=== PATIENT | female | born 1935 | race African-American/Black ===

== ENCOUNTER 2019-10-20 18:28 | Inpatient (IN) | payer OTHER, BC ==
[2019-10-20 19:03] VITALS: BMI 29.1
--- NOTE | 2019-10-20 19:23 | PDOC ---
Attending Attestation - Resident Resident Name: Brad Arevalo - ED Attending Attestation I have performed the following: I have examined & evaluated the patient, The case was reviewed & discussed with the resident, I agree w/resident's findings & plan - HPI HPI: 10/20/19 20:33 Pt comes with seizure activity at home today, and urinary incontinence. She lives with one of her daughters. She comes to the hospital with another one of her daughters who did not witness the seizure. Pt has a remote hx of seizures. She is non compliant with anti-seizure meds for years. She is not aware of what med she was on. Pt is alert and awake and responding normally. Her daughter states that for the past month she has been rickie forgetful. Pt has a great appetite. Yesterday she was vomiting a bit yesterday and today she ate soup. Pt is afebrile and has no complaints. - Physicial Exam PE: 10/20/19 20:37 Afebrile VSS Pt is able to move all extremities and she has no difficulty following commands. Motor and strength intact Pt has HEENT normal Heart [id number] Lungs CTA B Abd soft NT ND (old hysterectomy scar) no flank pain No pitting edema of legs. no rashes - Medical Decision Making 10/20/19 20:33 CBC normal PT/INR normal 10/20/19 20:56 Lactic acid is normal 10/20/19 22:06 Pt has elevated glucose; all labs are normal. Once head CT is back, sh will be admitted. 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 Left frontotemporal encephalomalacia and gliosis compatible with an old infarct No intra-or extra-axial hemorrhage or collection. No midline shift Mild to moderate cortical atrophy Ex vacuo dilatation of the anterior horn and body of the left lateral ventricle secondary to encephalomalacia. The ventricles are otherwise not enlarged Areas of low attenuation in the periventricular white matter are compatible with chronic microvascular ischemic changes. The visualized paranasal sinuses and mastoid air cells are clear 10/20/19 23:13 Pt will be admitted to the hospitalists
[2019-10-20] MEDS ORDERED: levETIRAcetam 500 MG/5 ML INJECTION VIAL IVPB ONE ×2 (19:43→20:39)
--- NOTE | 2019-10-20 19:52 | PDOC ---
History of Present Illness - General Chief Complaint: Seizure Stated Complaint: FLU LIKE SYMPTOMS Time Seen by Provider: 10/20/19 19:23 History Source: Patient Exam Limitations: No Limitations - History of Present Illness Initial Comments: 10/20/19 19:52 84 y/o F hx of CVA (residual deficit of dysarthria), HTN, hypothyroidism, borderline DM, blood clots (Xeralto) and seizures presents to the ED after seizure. Daughter at the bedside witnessed episode at 6 pm described as eyes rolling back while pt was seated (no LOC and did not hit her head), whole body shaking followed by 1 episode of NB/NB vomiting and urinated on herself without tongue bitting. Pt appeared confused for approx 5 min and returned to baseline mentation (AOX2) without complaints. Denies SOB, CP (pt mentioned to family on transport to ED that she had CP that resolved), back pain, abdominal pain, F/C, recent illness, sick contacts, recent travel, calf tenderness, lower ext swelling. Of note, daughter states pt has not taken seizure medication in years, was taken off medication by PCP Villa Myers. Does not know the name of the Neurologist she use to see. Past History - Past Medical History Allergies/Adverse Reactions: Allergies Allergy/AdvReac Type Severity Reaction Status Date / Time No Known Allergies Allergy Verified 10/25/18 23:37 CVA: Yes COPD: No HTN: Yes Thyroid Disease: Yes (hypo) - Psycho Social/Smoking Cessation Hx Smoking History: Never smoked Have you smoked in the past 12 months: No Information on smoking cessation initiated: No Hx Alcohol Use: No Drug/Substance Use Hx: No Review of Systems - Review of Systems Constitutional: No: Chills, Fever, Weakness HEENTM: No: Blurred Vision, Double Vision Respiratory: No: Shortness of Breath Cardiac (ROS): No: Chest Pain (resolved), Edema, Palpitations, Syncope ABD/GI: Yes: Vomiting. No: Constipated, Diarrhea, Nausea : No: Burning, Dysuria, Frequency, Flank Pain Musculoskeletal: No: Back Pain Neurological: Yes: Seizure. No: Numbness, Paresthesia, Weakness, Dizziness *Physical Exam - Vital Signs Last Vital Signs Temp Pulse Resp BP Pulse Ox 98.3 F 88 20 137/75 95 10/20/19 19:00 10/20/19 19:00 10/20/19 19:00 10/20/19 19:00 10/20/19 19:00 - Physical Exam General Appearance: Yes: Nourished, Appropriately Dressed. No: Apparent Distress HEENT: positive: EOMI, AIRAM, Normal Voice, Hearing Grossly Normal. negative: Pharyngeal Erythema, Tonsillar Exudate, Nasal Congestion Neck: positive: Supple. negative: Carotid bruit Respiratory/Chest: positive: Lungs Clear, Normal Breath Sounds. negative: Respiratory Distress, Accessory Muscle Use Cardiovascular: positive: Regular Rhythm, Regular Rate, S1, S2. negative: Edema , JVD, Murmur Vascular Pulses: Dorsalis-Pedis (R): 4+, Doralis-Pedis (L): 4+ Gastrointestinal/Abdominal: positive: Flat, Soft. 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 negative: Fully Oriented (baseline AOX2), Facial Droop, Numbness, Sensory Deficit, Confused, Disoriented ED Treatment Course - LABORATORY CBC & Chemistry Diagram: 10/20/19 19:47 10/20/19 19:47 - RADIOLOGY Radiology Studies Ordered: Category Date Time Status CHEST X-RAY PORTABLE* [RAD] Stat Radiology 10/20/19 19:42 Ordered Medical Decision Making - Medical Decision Making 10/20/19 19:59 84 y/o F hx of CVA (residual deficit of dysarthria), HTN, hypothyroidism, borderline DM, blood clots (Xeralto) and seizures presents to the ED after seizure. Daughter at the bedside witnessed episode at 6 pm described as eyes rolling back while pt was seated (no LOC and did not hit her head), whole body shaking followed by 1 episode of NB/NB vomiting and urinated on herself without tongue bitting. Pt appeared confused for approx 5 min and returned to baseline mentation (AOX2) without complaints. Denies SOB, CP, back pain, abdominal pain, F/C, recent illness, sick contacts, recent travel, calf tenderness, lower ext swelling. Of note, daughter states pt has not taken seizure medication in years, was taken off medication by PCP Villa Myers. Does not know the name of the Neurologist she use to see. Vitals WNL Pt well appearing, baseline mentation AOX2 without any complaints Will do labs including cardiac profile, lactic acid, tsh Head CT EKG, CXR UA/UC Will treat with 1G IV keppra and reassess 10/20/19 20:14 EKG NSR without acute signs of ischemia. Vent rate 85 bpm, QTc 442 Brother at the bedside adds to hx, states pt use to see Dr. Mckeon (Neuro) was on Dilantin 5 years ago, stopped taking medication on her own and did not have a seizure since. Dr. Mckeon agreed to have her not take medication and no longer follows pt. 10/20/19 23:[address] Myers agrees to admission tele stroke for CVA vs Seizure Discharge - Discharge Information Problems reviewed: Yes Clinical Impression/Diagnosis: Seizure, CVA (cerebral vascular accident) Condition: Stable - Admission Yes - Follow up/Referral Referrals: Villa Myers MD [Primary Care Provider] - - Patient Discharge Instructions - Post Discharge Activity
[2019-10-20 20:12] LABS: INR 1.13 (0.83-1.09); PROTHROMBIN TIME (PATIENT) 13.3 SEC (9.7-13.0)
[2019-10-20 20:15] LABS: ACTIVATED PTT 27.8 SECONDS (25.2-36.5)
[2019-10-20 20:29] LABS: BASO % 0.8 % (0-2.0); EOS % 0.3 % (0-4.5); HEMATOCRIT 39.4 % (32.4-45.2); HEMOGLOBIN 13.4 GM/dL (10.7-15.3); LYMPH % 9.3 % (8-40); MCH 32.1 pg (25.7-33.7); MEAN CELL VOLUME 94.5 fl (80-96); MEAN PLT VOLUME 8.8 fl (7.5-11.1); MONO % 4.2 % (3.8-10.2); NEUT % 85.4 % (42.8-82.8); PLATELET COUNT 176 K/MM3 (134-434); RBC 4.17 M/mm3 (3.60-5.2); RDW 13.2 % (11.6-15.6); WHITE BLOOD COUNT 6.5 K/mm3 (4.0-10.0)
[2019-10-20 21:07] LABS: ALBUMIN 3.2 g/dl (3.4-5.0); ALK PHOS 138 U/L (45-117); ANION GAP 5 MMOL/L (8-16); CALCIUM 8.5 mg/dL (8.5-10.1); CHLORIDE 101 mmol/L (98-107); CO2 29 mmol/L (21-32); CREATININE 0.9 mg/dL (0.55-1.3); GLUCOSE,RANDOM 241 mg/dL (74-106); POTASSIUM 4.3 mmol/L (3.5-5.1); SGOT/AST 37 U/L (15-37); SGPT/ALT 16 U/L (13-61); SODIUM 136 mmol/L (136-145); TOT PROT 7.7 g/dl (6.4-8.2)
[2019-10-21 02:32] LABS: EPI CELLS 3.2 /HPF (0-5/HPF); HYALINE CASTS 9 /lpf (0-8); URINE APPEARANCE CLOUDY; URINE BACTERIA 8695.8 /hpf (NEGATIVE); URINE BILIRUBIN NEGATIVE (NEGATIVE); URINE COLOR YELLOW; URINE GLUCOSE (UA) NEGATIVE (NEGATIVE); URINE KETONE TRACE (NEGATIVE); URINE LEUK ESTERASE NEGATIVE (NEGATIVE); URINE NITRITE POSITIVE (NEGATIVE); URINE PROTEIN 1+ (NEGATIVE); URINE RBC 3 /hpf (0-4); URINE WBC 7 /hpf (0-5)
[2019-10-21] MEDS: metFORMIN HCL 500 MG TABLET (FP) PO SCH ×2 (08:51→16:56)
[2019-10-21] MEDS ORDERED: NITROFURANTOIN MACROCRYSTAL 50 MG CAPSULE (FP) PO SCH (10:00)
[2019-10-21] MEDS: metoPROLOL SUCCINATE 25 MG TAB.SR.24H (FP) PO SCH (10:42)
[2019-10-21] MEDS: ASPIRIN COATED 81 MG TABLET.EC PO SCH (10:42)
[2019-10-21] MEDS: levETIRAcetam 500 MG TABLET (FP) PO SCH ×2 (10:42→21:10)
--- NOTE | 2019-10-21 11:35 | HP ---
Admitting History and Physical - Admission Chief Complaint: pt had seizure at home lasted ? 30 sec??family not very informative w respect to meds. pt never complaint w neds despite fam involvment History Source: Family Member Limitations to Obtaining History: Other (diff formulating words sec to past insult to b rain) - Past Medical History Cardiovascular: Yes: HTN ...: No - Past Surgical History Additional Past Surgical History: brain aneurysm cliped - Smoking History Smoking history: Never smoked Have you smoked in the past 12 months: No - Alcohol/Substance Use Hx Alcohol Use: No History of Substance Use: reports: None - Social History Usual Living Arrangement: Yes: With Child Home Medications - Allergies Allergies/Adverse Reactions: Allergies Allergy/AdvReac Type Severity Reaction Status Date / Time No Known Allergies Allergy Verified 10/25/18 23:37 Family Medical History Family History: Unremarkable Review of Systems - Review of Systems Constitutional: reports: Other (rt leg pasin) Eyes: reports: No Symptoms HENT: reports: No Symptoms Neck: reports: No Symptoms Cardiovascular: reports: No Symptoms Respiratory: reports: No Symptoms Gastrointestinal: reports: No Symptoms Genitourinary: reports: No Symptoms Breasts: reports: No Symptoms Reported Musculoskeletal: reports: Back Pain Integumentary: reports: No Symptoms Neurological: reports: Confusion Endocrine: reports: No Symptoms Hematology/Lymphatic: reports: No Symptoms Psychiatric: reports: No Symptoms Physical Examination Vital Signs: Vital Signs Temperature 98.9 F 10/21/19 04:56 Pulse Rate 67 10/21/19 10:40 Respiratory Rate 20 10/21/19 10:40 Blood Pressure 137/69 10/21/19 10:40 O2 Sat by Pulse Oximetry (%) 97 10/21/19 10:40 Constitutional: Yes: No Distress Eyes: Yes: WNL HENT: Yes: WNL Neck: Yes: WNL Cardiovascular: Yes: WNL, Other Gastrointestinal: Yes: WNL ...Rectal Exam: Yes: Deferred Renal/: Yes: WNL Breast(s): Yes: WNL Musculoskeletal: Yes: Back Pain, Muscle Weakness Extremities: Yes: WNL, Other (rt leg edematous pain scal 5) Edema: Yes Edema: RLE: 3+ Peripheral Pulses WNL: Yes Peripheral Pulses: Left Radial: 2+, Right Radial: 2+, Left Doralis Pedis: 2+, Right Dorsalis Pedis: 2+, Left Femoral: 2+, Right Femoral: 2+ Integumentary: Yes: WNL (slow formilating words?) ...Motor Strength: WNL (mild oms) Labs: CBC, BMP 10/20/19 19:47 10/20/19 19:47 Assessment/Plan rt leg duplex josué ekg past ? irregular heart ?? as per mattehw pulm consult neuro to see pt
--- NOTE | 2019-10-21 13:43 | CON.PULM ---
Consult Consult Specialty:: PULMONARY Referred by:: Dr Myers Reason for Consultation:: abnormal CXR - History of Present Illness Chief Complaint: altered mental status History of Present Illness: 84yo female with h/o HTN, DM, hypothyroidism, h/o blood clots on anticoagulation , h/o CVA, seizure disorder who was admitted s/p seizure episode. She ws not taking her medications at home. She denies shortness of breath but with nonproductive cough. No fevers, chills or sweats. She states she is a former smoker, not on any inhalers at home. - History Source History Provided By: Patient, Medical Record Limitations to Obtaining History: Clinical Condition - Past Medical History Cardio/Vascular: Yes: HTN ...: No - Alcohol/Substance Use Hx Alcohol Use: No History of Substance Use: reports: None - Smoking History Smoking history: Never smoked Have you smoked in the past 12 months: No Home Medications - Allergies Allergies/Adverse Reactions: Allergies Allergy/AdvReac Type Severity Reaction Status Date / Time No Known Allergies Allergy Verified 10/25/18 23:37 Review of Systems - Review of Systems Constitutional: reports: Weakness. denies: Chills, Fever Eyes: denies: Recent Change in Vision HENT: denies: Nasal Congestion, Throat Pain Neck: denies: Stiffness, Tenderness Cardiovascular: denies: Chest Pain, Shortness of Breath Respiratory: reports: Cough. denies: Hemoptysis, Wheezing Gastrointestinal: denies: Abdominal Pain, Nausea, Vomiting Genitourinary: denies: Dysuria, Hematuria Neurological: denies: Dizziness, Headache Endocrine: denies: Unexplained Weight Loss Physical Exam Vital Sings: Vital Signs Temperature 98.9 F 10/21/19 04:56 Pulse Rate 73 10/21/19 13:00 Respiratory Rate 18 10/21/19 13:00 Blood Pressure 151/69 10/21/19 13:00 O2 Sat by Pulse Oximetry (%) 98 10/21/19 13:00 Constitutional: Yes: Calm Eyes: Yes: Conjunctiva Clear, EOM Intact HENT: Yes: Atraumatic, Normocephalic Neck: Yes: Supple, Trachea Midline Cardiovascular: Yes: Regular Rate and Rhythm Respiratory: Yes: Diminished (decreased breath sounds at the bases) ...Clubbing: No Gastrointestinal: Yes: Normal Bowel Sounds, Soft. No: Tenderness Edema: No Neurological: Yes: Alert Labs: CBC, BMP 10/20/19 19:47 10/20/19 19:47 Imaging - Results Chest X-ray: Report Reviewed, Image Reviewed (LLL infiltrate) Assessment/Plan Seizure Seizure Disorder Pneumonia HTN Dm Hypothyroidism h/o VTE h/o CVA - would start antibiotics - f/u cultures - send urinary antigens - O2 to keep Spo2>90% - antiepileptics - aspiration precautions - DVT prophylaxis Thank you for this consult Nitin Paiz MD
--- NOTE | 2019-10-21 14:08 | EKG ---
Test Reason : Blood Pressure : / mmHG Vent. Rate : 085 BPM Atrial Rate : 085 BPM P-R Int : 160 ms QRS Dur : 082 ms QT Int : 372 ms P-R-T Axes : 064 -23 055 degrees QTc Int : 442 ms NORMAL SINUS RHYTHM LEFT ATRIAL ENLARGEMENT LEFT VENTRICULAR HYPERTROPHY INFERIOR INFARCT , AGE UNDETERMINED ABNORMAL ECG NO PREVIOUS ECGS AVAILABLE Confirmed by MD ZUNIGA MOYSES ([id number]) on 10/21/2019 2:08:16 PM Referred By: Confirmed By:RAI ZUNIGA MD
[2019-10-21] MEDS ORDERED: DEXTROSE 5%-WATER - 50 ML IVPB ONE (15:40)
[2019-10-21] MEDS ORDERED: cefTRIAXone SODIUM 1 GM VIAL ONE (15:40)
[2019-10-21] MEDS: CEFTRIAXONE 1 GM in DEXTROSE 5%-WATER - 50 ML IVPB SCH (15:43)
[2019-10-21] MEDS ORDERED: AZITHROMYCIN IVPB 500 MG in DEXTROSE 5%-WATER - 250 ML IVPB SCH (22:30)
[2019-10-21] MEDS ORDERED: CEFTRIAXONE 1,000 MG in DEXTROSE 5%-WATER - 50 ML IVPB SCH (22:30)
[2019-10-21] MEDS ORDERED: AZITHROMYCIN IVPB 500 MG/250 ML BAG IVPB ONE (23:30)
[2019-10-22] MEDS: metFORMIN HCL 500 MG TABLET (FP) PO SCH ×2 (06:06→17:11)
[2019-10-22 07:23] LABS: BASO % 0.4 % (0-2.0); EOS % 2.1 % (0-4.5); HEMATOCRIT 36.6 % (32.4-45.2); HEMOGLOBIN 12.2 GM/dL (10.7-15.3); LYMPH % 29.5 % (8-40); MCH 31.7 pg (25.7-33.7); MCHC 33.4 g/dl (32.0-36.0); MEAN CELL VOLUME 95.1 fl (80-96); MONO % 11.1 % (3.8-10.2); NEUT % 56.9 % (42.8-82.8); PLATELET COUNT 163 K/MM3 (134-434); RBC 3.84 M/mm3 (3.60-5.2); RDW 13.1 % (11.6-15.6); WHITE BLOOD COUNT 5.5 K/mm3 (4.0-10.0)
[2019-10-22 07:58] LABS: BILIRUBIN,TOTAL 0.8 mg/dL (0.2-1); BLOOD UREA NITROGEN 21.3 mg/dL (7-18); CALCIUM 8.7 mg/dL (8.5-10.1); POTASSIUM 3.2 mmol/L (3.5-5.1); TOT PROT 6.8 g/dl (6.4-8.2)
[2019-10-22] MEDS ORDERED: cefTRIAXone SODIUM 1 GM VIAL ONE (09:08)
[2019-10-22] MEDS ORDERED: DEXTROSE 5%-WATER - 50 ML IVPB ONE (09:09)
[2019-10-22] MEDS: CEFTRIAXONE 1 GM in DEXTROSE 5%-WATER - 50 ML IVPB SCH (09:24)
[2019-10-22] MEDS: metoPROLOL SUCCINATE 25 MG TAB.SR.24H (FP) PO SCH (09:24)
[2019-10-22] MEDS: levETIRAcetam 500 MG TABLET (FP) PO SCH ×2 (09:24→22:04)
[2019-10-22] MEDS: ASPIRIN COATED 81 MG TABLET.EC PO SCH (09:24)
[2019-10-22] MEDS ORDERED: POTASSIUM CHLORIDE TABS 20 MEQ TABLET.ER (FP) PO ONE (11:00)
[2019-10-22] MEDS: AZITHROMYCIN IVPB 250 MG in DEXTROSE 5%-WATER - 250 ML IVPB SCH (11:50)
--- NOTE | 2019-10-22 11:55 | PN ---
Progress Note (short form) - Note Progress Note: Resting in NAD on RA. Reports some dry cough. No acute events overnight. Intake & Output 10/19/19 10/20/19 10/21/19 10/22/19 23:59 23:59 23:59 23:59 Intake Total 660 Balance 660 Weight 185 lb 13.683 oz 185 lb 13.683 oz Last Vital Signs Temp Pulse Resp BP Pulse Ox 98.1 F 68 18 117/55 L 74 L 10/22/19 05:58 10/22/19 05:58 10/22/19 05:58 10/22/19 05:58 10/21/19 21:00 Active Medications Aspirin (Ecotrin -) 81 mg PO DAILY [facility] Last Admin: 10/22/19 09:24 Dose: 81 mg Ceftriaxone Sodium 1 gm/ (Dextrose) 50 mls @ 100 mls/hr IVPB DAILY [facility]; Protocol Last Admin: 10/22/19 09:24 Dose: 100 mls/hr Azithromycin 250 mg/ Dextrose 250 mls @ 250 mls/hr IVPB DAILY [facility] Stop: 10/25/19 10:59 Levetiracetam (Keppra -) 500 mg PO BID [facility] Last Admin: 10/22/19 09:24 Dose: 500 mg Metformin HCl (Glucophage -) 1,000 mg PO BID@0700,1630 [facility] Last Admin: 10/22/19 06:06 Dose: 1,000 mg Metoprolol Succinate (Toprol Xl -) 25 mg PO DAILY [facility] Last Admin: 10/22/19 09:24 Dose: 25 mg Constitutional: Yes: NAD on RA Eyes: Yes: Conjunctiva Clear, EOM Intact HENT: Yes: Atraumatic, Normocephalic Neck: Yes: Supple, Trachea Midline Cardiovascular: Yes: Regular Rate and Rhythm Respiratory: Yes: Diminished (decreased breath sounds at the bases) ...Clubbing: No Gastrointestinal: Yes: Normal Bowel Sounds, Soft. No: Tenderness Edema: No Neurological: Yes: Alert Labs: Laboratory Results - last 24 hr 10/21/19 10/21/19 10/22/19 16:55 20:06 06:00 WBC RBC Hgb Hct MCV MCH MCHC RDW Plt Count MPV Absolute Neuts (auto) Neutrophils % Lymphocytes % Monocytes % Eosinophils % Basophils % Nucleated RBC % Sodium 138 Potassium 3.2 L Chloride 103 Carbon Dioxide 27 Anion Gap 7 L BUN 21.3 H Creatinine 1.0 Est GFR (CKD-EPI)AfAm 60.76 Est GFR (CKD-EPI)NonAf 52.42 POC Glucometer 163 217 Random Glucose 158 H Calcium 8.7 Total Bilirubin 0.8 AST 17 ALT 11 L Alkaline Phosphatase 113 Total Protein 6.8 Albumin 3.0 L 10/22/19 10/22/19 06:00 06:05 WBC 5.5 RBC 3.84 Hgb 12.2 Hct 36.6 MCV 95.1 MCH 31.7 MCHC 33.4 RDW 13.1 Plt Count 163 MPV 9.0 Absolute Neuts (auto) 3.1 Neutrophils % 56.9 D Lymphocytes % 29.5 D Monocytes % 11.1 H D Eosinophils % 2.1 D Basophils % 0.4 Nucleated RBC % 0 Sodium Potassium Chloride Carbon Dioxide Anion Gap BUN Creatinine Est GFR (CKD-EPI)AfAm Est GFR (CKD-EPI)NonAf POC Glucometer 155 Random Glucose Calcium Total Bilirubin AST ALT Alkaline Phosphatase Total Protein Albumin Assessment/Plan LLL PNA Seizure Seizure Disorder HTN Dm Hypothyroidism h/o VTE h/o CVA - ABX - send urinary antigens - O2 to keep Spo2>90% - antiepileptics - aspiration precautions - DVT prophylaxis Dr Ramsey
--- NOTE | 2019-10-22 17:21 | PN ---
Progress Note, Physician History of Present Illness: confortable seuizure free tolerating diet bm ok diff formulating words agreed to take po kcl finally neuron will see pt today - Current Medication List Current Medications: Active Medications Aspirin (Ecotrin -) 81 mg PO DAILY [facility] Last Admin: 10/22/19 09:24 Dose: 81 mg Ceftriaxone Sodium 1 gm/ (Dextrose) 50 mls @ 100 mls/hr IVPB DAILY [facility]; Protocol Last Admin: 10/22/19 09:24 Dose: 100 mls/hr Azithromycin 250 mg/ Dextrose 250 mls @ 250 mls/hr IVPB DAILY [facility] Stop: 10/25/19 10:59 Last Admin: 10/22/19 11:50 Dose: 250 mls/hr Levetiracetam (Keppra -) 500 mg PO BID [facility] Last Admin: 10/22/19 09:24 Dose: 500 mg Metformin HCl (Glucophage -) 1,000 mg PO BID@0700,1630 [facility] Last Admin: 10/22/19 17:11 Dose: 1,000 mg Metoprolol Succinate (Toprol Xl -) 25 mg PO DAILY [facility] Last Admin: 10/22/19 09:24 Dose: 25 mg - Objective Vital Signs: Vital Signs Temperature 98.6 F 10/22/19 15:00 Pulse Rate 70 10/22/19 15:00 Respiratory Rate 18 10/22/19 15:00 Blood Pressure 142/67 10/22/19 15:00 O2 Sat by Pulse Oximetry (%) 94 L 10/22/19 09:00 Constitutional: Yes: No Distress Eyes: Yes: WNL HENT: Yes: WNL Neck: Yes: WNL Cardiovascular: Yes: WNL Respiratory: Yes: WNL Gastrointestinal: Yes: WNL ...Rectal Exam: Yes: Deferred Genitourinary: Yes: WNL Breast(s): Yes: WNL Musculoskeletal: Yes: WNL Extremities: Yes: WNL Edema: Yes Edema: RLE: 1+ Peripheral Pulses WNL: Yes Integumentary: Yes: WNL Neurological: Yes: Seizure ...Motor Strength: WNL Psychiatric: Yes: Other (mild oms) Labs: CBC, BMP 10/22/19 06:00 10/22/19 06:00 INR, PTT INR 1.13 (0.83-1.09) H 10/20/19 19:47 Assessment/Plan cont tx as is f/u neuro ? mri brain
--- NOTE | 2019-10-22 19:23 | CONSULT ---
Consult - text type - Consultation Consultation Note: NEUROLOGY CONSULTATION is greatly appreciated: Events reviewed and discussed with Dr. Villa Myers, This 84 yo RH woman lives with her son. PMH sig for HTN, Chol, Hypothyroidism and distant seizure disorder. Maintained on: Aspirin 81 mg; Metformin 1,000 mg PO BID; and Metoprolol Xl 25 m Seen by me > 10 years ago on chronic Dilantin therapy after being seizure free for 5 years at that time (and had already D/C'ed Dilantin on her own.) Admitted after possible unwitnessed seizure with urinary incontinence. Loaded with levetiracetam. Son notes recent memory decline. CT scan of head: S/P left craniotomy with aneurysmal clips near the left MCA trifurcation and right parasellar region with left frontal encephalomalacia and Ventricular dilatation (L>R) and diffuse, scattered microvascular changes. TSH=0.73 CODY: No evidence of external head trauma. No bruits. Cor reg. NEURO: Awake, alert. Fluent but hypophonic speech. [facility], September 2019. Recalls 0 of 3 objects at 3 mins + Glabella, snout CN II-XII: Mild right exotropia with full EOM's. Full torres. No facial. Gag OK Motor: Mild right drift and Sl.decreased NATALIE's. Decreased reflexes in legs. Toes downgoing Coord: No FTN dystaxia. Sensory: Normal IMP: 1. Moderate, B/L cerebral dysfuction (OMS, chronic features) sugesting Alzheimer's Disease 2. Mild left cerebral accentuation probably residual of MCA aneurysmal clipping and/or associated CVA (Vasospasm?) 3. Recurrent seizure vs. Syncope or fall SUGGEST: Check B12, RPR Mobilize Patient OO Bed to chair TID for meals and check orthostatic BP's at these times Telemetry or halter to r/o arrhythmia Agree with levetiracetam 500 mg PO BID PT for gait with walker Neuro f/u as out patient for EEG and o follow OMS. If no bradycardia or arrythmia, begin Donepezil 5 mg PO q AM Thank you very much, Bruce Mckeon MD
[2019-10-23] MEDS: metFORMIN HCL 500 MG TABLET (FP) PO SCH ×2 (06:27→16:54)
[2019-10-23 06:54] LABS: BLOOD UREA NITROGEN 21.2 mg/dL (7-18); CALCIUM 8.8 mg/dL (8.5-10.1); POTASSIUM 3.7 mmol/L (3.5-5.1)
[2019-10-23 07:02] LABS: BASO % 0.7 % (0-2.0); EOS % 5.7 % (0-4.5); HEMATOCRIT 37.2 % (32.4-45.2); HEMOGLOBIN 12.4 GM/dL (10.7-15.3); LYMPH % 29.4 % (8-40); MCH 32.2 pg (25.7-33.7); MCHC 33.4 g/dl (32.0-36.0); MEAN CELL VOLUME 96.4 fl (80-96); MEAN PLT VOLUME 9.2 fl (7.5-11.1); MONO % 9.2 % (3.8-10.2); PLATELET COUNT 157 K/MM3 (134-434); RBC 3.86 M/mm3 (3.60-5.2); RDW 13.6 % (11.6-15.6); WHITE BLOOD COUNT 6.1 K/mm3 (4.0-10.0)
[2019-10-23] MEDS ORDERED: DEXTROSE 5%-WATER - 50 ML IVPB ONE (08:53)
[2019-10-23] MEDS ORDERED: cefTRIAXone SODIUM 1 GM VIAL ONE (08:53)
[2019-10-23] MEDS: ASPIRIN COATED 81 MG TABLET.EC PO SCH (09:41)
[2019-10-23] MEDS: metoPROLOL SUCCINATE 25 MG TAB.SR.24H (FP) PO SCH (09:41)
[2019-10-23] MEDS: CEFTRIAXONE 1 GM in DEXTROSE 5%-WATER - 50 ML IVPB SCH (09:41)
[2019-10-23] MEDS: levETIRAcetam 500 MG TABLET (FP) PO SCH ×2 (09:41→21:09)
[2019-10-23] MEDS: AZITHROMYCIN IVPB 250 MG in DEXTROSE 5%-WATER - 250 ML IVPB SCH (10:31)
--- NOTE | 2019-10-23 11:04 | PN ---
Progress Note, Physician History of Present Illness: could not tolerate donazopil n/v compfotable vss bm ok tolerating diet - Current Medication List Current Medications: Active Medications Aspirin (Ecotrin -) 81 mg PO DAILY [facility] Last Admin: 10/23/19 09:41 Dose: 81 mg Ceftriaxone Sodium 1 gm/ (Dextrose) 50 mls @ 100 mls/hr IVPB DAILY [facility]; Protocol Last Admin: 10/23/19 09:41 Dose: 100 mls/hr Azithromycin 250 mg/ Dextrose 250 mls @ 250 mls/hr IVPB DAILY [facility] Stop: 10/25/19 10:59 Last Admin: 10/23/19 10:31 Dose: 250 mls/hr Levetiracetam (Keppra -) 500 mg PO BID [facility] Last Admin: 10/23/19 09:41 Dose: 500 mg Metformin HCl (Glucophage -) 1,000 mg PO BID@0700,1630 [facility] Last Admin: 10/23/19 06:27 Dose: 1,000 mg Metoprolol Succinate (Toprol Xl -) 25 mg PO DAILY [facility] Last Admin: 10/23/19 09:41 Dose: 25 mg - Objective Vital Signs: Vital Signs Temperature 97.8 F 10/23/19 09:49 Pulse Rate 71 10/23/19 09:49 Respiratory Rate 18 10/23/19 09:49 Blood Pressure 142/70 10/23/19 09:49 O2 Sat by Pulse Oximetry (%) 95 10/23/19 08:38 Constitutional: Yes: No Distress Eyes: Yes: WNL HENT: Yes: WNL Neck: Yes: WNL Cardiovascular: Yes: WNL Respiratory: Yes: WNL Gastrointestinal: Yes: WNL ...Rectal Exam: Yes: Deferred Genitourinary: Yes: WNL Breast(s): Yes: WNL Musculoskeletal: Yes: Back Pain, Joint Stiffness Extremities: Yes: WNL Edema: Yes Edema: RLE: 1+ Peripheral Pulses WNL: Yes Integumentary: Yes: WNL Neurological: Yes: WNL, Unresponsive Labs: CBC, BMP 10/23/19 05:26 10/23/19 05:26 INR, PTT INR 1.13 (0.83-1.09) H 10/20/19 19:47 Assessment/Plan p/t eval d/c ? sprain nh in ? am chk labs in am coid not tolerate donozapil n/v oob
--- NOTE | 2019-10-23 13:38 | PN ---
Progress Note (short form) - Note Progress Note: Resting in NAD on RA. Reports some dry cough. No acute events overnight. Intake & Output 10/20/19 10/21/19 10/22/19 10/23/19 23:59 23:59 23:59 23:59 Intake Total 660 830 370 Balance 660 830 370 Weight 185 lb 13.683 oz 185 lb 13.683 oz Last Vital Signs Temp Pulse Resp BP Pulse Ox 97.8 F 71 18 142/70 95 10/23/19 09:49 10/23/19 09:49 10/23/19 09:49 10/23/19 09:49 10/23/19 08:38 Active Medications Aspirin (Ecotrin -) 81 mg PO DAILY [facility] Last Admin: 10/23/19 09:41 Dose: 81 mg Ceftriaxone Sodium 1 gm/ (Dextrose) 50 mls @ 100 mls/hr IVPB DAILY [facility]; Protocol Last Admin: 10/23/19 09:41 Dose: 100 mls/hr Azithromycin 250 mg/ Dextrose 250 mls @ 250 mls/hr IVPB DAILY [facility] Stop: 10/25/19 10:59 Last Admin: 10/23/19 10:31 Dose: 250 mls/hr Levetiracetam (Keppra -) 500 mg PO BID [facility] Last Admin: 10/23/19 09:41 Dose: 500 mg Metformin HCl (Glucophage -) 1,000 mg PO BID@0700,1630 [facility] Last Admin: 10/23/19 06:27 Dose: 1,000 mg Metoprolol Succinate (Toprol Xl -) 25 mg PO DAILY [facility] Last Admin: 10/23/19 09:41 Dose: 25 mg Sitagliptin Phosphate (Januvia -) 25 mg PO DAILY@0700 [facility] Constitutional: Yes: NAD on RA Eyes: Yes: Conjunctiva Clear, EOM Intact HENT: Yes: Atraumatic, Normocephalic Neck: Yes: Supple, Trachea Midline Cardiovascular: Yes: Regular Rate and Rhythm Respiratory: Yes: Diminished (decreased breath sounds at the bases) ...Clubbing: No Gastrointestinal: Yes: Normal Bowel Sounds, Soft. No: Tenderness Edema: No Neurological: Yes: Alert Labs: Laboratory Results - last 24 hr 10/22/19 10/22/19 10/23/19 17:11 22:03 05:26 WBC 6.1 RBC 3.86 Hgb 12.4 Hct 37.2 MCV 96.4 H MCH 32.2 MCHC 33.4 RDW 13.6 Plt Count 157 MPV 9.2 Absolute Neuts (auto) 3.3 Neutrophils % 55.0 Lymphocytes % 29.4 Monocytes % 9.2 Eosinophils % 5.7 H D Basophils % 0.7 Nucleated RBC % 0 Sodium Potassium Chloride Carbon Dioxide Anion Gap BUN Creatinine Est GFR (CKD-EPI)AfAm Est GFR (CKD-EPI)NonAf POC Glucometer 185 246 Random Glucose Calcium 10/23/19 10/23/19 10/23/19 05:26 06:26 12:26 WBC RBC Hgb Hct MCV MCH MCHC RDW Plt Count MPV Absolute Neuts (auto) Neutrophils % Lymphocytes % Monocytes % Eosinophils % Basophils % Nucleated RBC % Sodium 140 Potassium 3.7 Chloride 107 Carbon Dioxide 27 Anion Gap 6 L BUN 21.2 H Creatinine 1.0 Est GFR (CKD-EPI)AfAm 60.76 Est GFR (CKD-EPI)NonAf 52.42 POC Glucometer 240 306 Random Glucose 223 H Calcium 8.8 Assessment/Plan LLL PNA Seizure Seizure Disorder HTN Dm Hypothyroidism h/o VTE h/o CVA - ABX - O2 to keep Spo2>90% - antiepileptics - aspiration precautions - DVT prophylaxis Dr Ramsey
--- NOTE | 2019-10-23 14:11 | CON.ID ---
Consult Consult Specialty:: infectious diseases Referred by:: Reason for Consultation:: ams - History of Present Illness Chief Complaint: ams History of Present Illness: 84yo female with h/o HTN, DM, hypothyroidism, h/o blood clots on anticoagulation , h/o CVA, seizure disorder who was admitted s/p seizure episode. She ws not taking her medications at home. She denies shortness of breath but with nonproductive cough. No fevers, chills or sweats. She states she is a former smoker, not on any inhalers at home. 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: Yes: Dementia, Other (h/o cva) Cardio/Vascular: Yes: HTN Pulmonary: Yes: Other (h/o pe) ...: No Musculoskeletal: Yes: Chronic low back pain, Osteoarthritis Endocrine: Yes: Diabetes Mellitus (cateract sx), Hypothyroidism - Past Surgical History Past Surgical History: Yes: Hysterectomy - Alcohol/Substance Use Hx Alcohol Use: No History of Substance Use: reports: None - Smoking History Smoking history: Never smoked Have you smoked in the past 12 months: No Aproximately how many cigarettes per day: 0 If you are a former smoker, when did you quit?: 10-20yrs - Social History ADL: Family Assistance History of Recent Travel: No Home Medications - Allergies Allergies/Adverse Reactions: Allergies Allergy/AdvReac Type Severity Reaction Status Date / Time No Known Drug Allergies Allergy Verified 04/03/18 18:44 - Home Medications Home Medications: Ambulatory Orders Aspirin Coated [Ecotrin -] 81 mg PO DAILY #0 tablet.ec 09/26/15 Glyburide [Micronase -] 2.5 mg PO DAILY@0700 #0 tablet 09/26/15 Levothyroxine [Synthroid -] 25 mcg PO DAILY@0700 #0 tablet 09/26/15 Rivaroxaban [Xarelto -] 20 mg PO DAILY #0 tablet 09/26/15 Valsartan [Diovan] 40 mg PO DAILY 04/08/16 Aspirin Coated [Ecotrin -] 81 mg PO DAILY tablet.ec 04/05/18 Furosemide [Lasix -] 40 mg PO DAILY tablet 04/05/18 Glyburide [Micronase -] 2.5 mg PO DAILY@0700 tablet 04/05/18 Levothyroxine [Synthroid -] 25 mcg PO DAILY@0700 tablet 04/05/18 Potassium Chloride [K-Dur -] 10 meq PO DAILY #90 tablet.er 04/05/18 Rivaroxaban [Xarelto -] 20 mg PO DAILY@1800 tablet 04/05/18 Valsartan [Diovan] 40 mg PO DAILY tablet 04/05/18 Review of Systems Unable to obtain ROS, reason: unable to obtain Physical Exam Vital Signs: Vital Signs Temperature 97.8 F 10/23/19 09:49 Pulse Rate 71 10/23/19 09:49 Respiratory Rate 18 10/23/19 09:49 Blood Pressure 142/70 10/23/19 09:49 O2 Sat by Pulse Oximetry (%) 95 10/23/19 08:38 Constitutional: Yes: No Distress, Calm Cardiovascular: Yes: Regular Rate and Rhythm Respiratory: Yes: Regular, CTA Bilaterally Gastrointestinal: Yes: Normal Bowel Sounds, Soft Musculoskeletal: Yes: WNL Extremities: Yes: WNL Neurological: Yes: Alert, Other (dementia) Labs: CBC, BMP 10/23/19 05:26 10/23/19 05:26 Imaging - Results Chest X-ray: Report Reviewed, Image Reviewed Cat Scan: Report Reviewed, Image Reviewed Assessment/Plan LLL PNA Seizure Seizure Disorder HTN Dm Hypothyroidism h/o VTE h/o CVA patient has been started on ceftriaxone and zithro will continue the abx asp precautions rest as per the team
[2019-10-24] MEDS: metFORMIN HCL 500 MG TABLET (FP) PO SCH ×2 (06:19→17:04)
[2019-10-24 07:52] LABS: BLOOD UREA NITROGEN 17.5 mg/dL (7-18); CALCIUM 8.6 mg/dL (8.5-10.1); CREATININE 0.8 mg/dL (0.55-1.3); POTASSIUM 4.1 mmol/L (3.5-5.1)
[2019-10-24 07:56] LABS: BASO % 0.6 % (0-2.0); EOS % 5.8 % (0-4.5); LYMPH % 36.8 % (8-40); MCH 31.9 pg (25.7-33.7); MCHC 33.4 g/dl (32.0-36.0); MEAN CELL VOLUME 95.4 fl (80-96); MEAN PLT VOLUME 8.9 fl (7.5-11.1); MONO % 9.9 % (3.8-10.2); NEUT % 46.9 % (42.8-82.8); PLATELET COUNT 160 K/MM3 (134-434); RBC 3.77 M/mm3 (3.60-5.2); RDW 13.2 % (11.6-15.6); WHITE BLOOD COUNT 5.9 K/mm3 (4.0-10.0)
[2019-10-24] MEDS ORDERED: cefTRIAXone SODIUM 1 GM VIAL ONE (10:09)
[2019-10-24] MEDS ORDERED: DEXTROSE 5%-WATER - 50 ML IVPB ONE (10:09)
[2019-10-24] MEDS ORDERED: PT OWN MED DRAWER 7, Y5N ONE (10:09)
[2019-10-24] MEDS: ASPIRIN COATED 81 MG TABLET.EC PO SCH (10:14)
[2019-10-24] MEDS: metoPROLOL SUCCINATE 25 MG TAB.SR.24H (FP) PO SCH (10:14)
[2019-10-24] MEDS: CEFTRIAXONE 1 GM in DEXTROSE 5%-WATER - 50 ML IVPB SCH (10:14)
[2019-10-24] MEDS: levETIRAcetam 500 MG TABLET (FP) PO SCH (10:14)
[2019-10-24] MEDS: AZITHROMYCIN IVPB 250 MG in DEXTROSE 5%-WATER - 250 ML IVPB SCH (11:00)
--- NOTE | 2019-10-24 11:40 | EKG ---
Test Reason : Blood Pressure : / mmHG Vent. Rate : 070 BPM Atrial Rate : 070 BPM P-R Int : 164 ms QRS Dur : 076 ms QT Int : 332 ms P-R-T Axes : 056 -14 096 degrees QTc Int : 358 ms NORMAL SINUS RHYTHM NONSPECIFIC T WAVE ABNORMALITY ABNORMAL ECG Confirmed by Landon Bartholomew MD ([id number]) on 10/24/2019 11:39:41 AM Referred By: Confirmed By:Landon Bartholomew MD
--- NOTE | 2019-10-24 12:43 | DS ---
Physical Examination Vital Signs: Vital Signs Temperature 97.5 F L 10/24/19 10:24 Pulse Rate 71 10/24/19 10:24 Respiratory Rate 20 10/24/19 10:24 Blood Pressure 120/62 10/24/19 10:24 O2 Sat by Pulse Oximetry (%) 95 10/23/19 21:00 Constitutional: Yes: Well Nourished Eyes: Yes: WNL HENT: Yes: WNL Neck: Yes: WNL Cardiovascular: Yes: WNL Respiratory: Yes: WNL Gastrointestinal: Yes: WNL ...Rectal Exam: Yes: Deferred Renal/: Yes: WNL Breast(s): Yes: WNL Musculoskeletal: Yes: WNL Extremities: Yes: WNL Edema: No Peripheral Pulses WNL: Yes Integumentary: Yes: WNL Neurological: Yes: WNL ...Motor Strength: WNL Psychiatric: Yes: WNL Labs: CBC, BMP 10/24/19 06:32 10/24/19 06:32 Discharge Summary Problems reviewed: Yes Reason For Visit: SEIZURE Current Active Problems CVA (cerebral vascular accident) (Acute) Seizure (Acute) Condition: Stable - Instructions Diet, Activity, Other Instructions: cont all meds as isp/t tx watsch for seizures Referrals: Villa Myers MD [Primary Care Provider] - Disposition: [facility]F-WAY FACILITY - Home Medications Comprehensive Discharge Medication List: Ambulatory Orders Aspirin Coated [Ecotrin -] 81 mg PO DAILY #0 tablet.ec 09/26/15 Glyburide [Micronase -] 2.5 mg PO DAILY@0700 #0 tablet 09/26/15 Levothyroxine [Synthroid -] 25 mcg PO DAILY@0700 #0 tablet 09/26/15 Rivaroxaban [Xarelto -] 20 mg PO DAILY #0 tablet 09/26/15 Valsartan [Diovan] 40 mg PO DAILY 04/08/16 Aspirin Coated [Ecotrin -] 81 mg PO DAILY tablet.ec 04/05/18 Furosemide [Lasix -] 40 mg PO DAILY tablet 04/05/18 Glyburide [Micronase -] 2.5 mg PO DAILY@0700 tablet 04/05/18 Levothyroxine [Synthroid -] 25 mcg PO DAILY@0700 tablet 04/05/18 Potassium Chloride [K-Dur -] 10 meq PO DAILY #90 tablet.er 07/18/18 Rivaroxaban [Xarelto -] 20 mg PO DAILY@1800 tablet 04/05/18 Valsartan [Diovan] 40 mg PO DAILY tablet 04/05/18
--- NOTE | 2019-10-24 14:05 | PN ---
Progress Note, Physician History of Present Illness: stable no new issues - Current Medication List Current Medications: Active Medications Aspirin (Ecotrin -) 81 mg PO DAILY [facility] Last Admin: 10/24/19 10:14 Dose: 81 mg Ceftriaxone Sodium 1 gm/ (Dextrose) 50 mls @ 100 mls/hr IVPB DAILY [facility]; Protocol Last Admin: 10/24/19 10:14 Dose: 100 mls/hr Azithromycin 250 mg/ Dextrose 250 mls @ 250 mls/hr IVPB DAILY [facility] Stop: 10/25/19 10:59 Last Admin: 10/24/19 11:00 Dose: 250 mls/hr Levetiracetam (Keppra -) 500 mg PO BID [facility] Last Admin: 10/24/19 10:14 Dose: 500 mg Metformin HCl (Glucophage -) 1,000 mg PO BID@0700,1630 [facility] Last Admin: 10/24/19 06:19 Dose: 1,000 mg Metoprolol Succinate (Toprol Xl -) 25 mg PO DAILY [facility] Last Admin: 10/24/19 10:14 Dose: 25 mg Sitagliptin Phosphate (Januvia -) 25 mg PO DAILY@0700 [facility] Last Admin: 10/24/19 06:19 Dose: 25 mg - Objective Vital Signs: Vital Signs Temperature 97.5 F L 10/24/19 10:24 Pulse Rate 71 10/24/19 10:24 Respiratory Rate 20 10/24/19 10:24 Blood Pressure 120/62 10/24/19 10:24 O2 Sat by Pulse Oximetry (%) 98 10/24/19 09:00 Constitutional: Yes: No Distress, Calm Cardiovascular: Yes: S1, S2 Respiratory: Yes: Regular, CTA Bilaterally Gastrointestinal: Yes: Normal Bowel Sounds, Soft Musculoskeletal: Yes: WNL Extremities: Yes: WNL Neurological: Yes: Alert Labs: CBC, BMP 10/24/19 06:32 10/24/19 06:32 INR, PTT INR 1.13 (0.83-1.09) H 10/20/19 19:47 Assessment/Plan LLL PNA Seizure Seizure Disorder HTN Dm Hypothyroidism h/o VTE h/o CVA plan can change to augmentin and zithro rest as per the team for 3 more days
--- NOTE | 2019-10-24 14:12 | PN ---
Progress Note (short form) - Note Progress Note: PULMONARY Still feeling weak. No fevers. Minimal cough. Vital Signs Period Temp Pulse Resp BP Sys/Oliver Pulse Ox Last 24 Hr 97.5 F-98.0 F 58-78 16-20 120-160/62-82 95-98 Gen: NAD at rest Heart: RRR Lung: decreased breath sounds at the bases Abd: soft, nontender Ext: no edema CBC, BMP 10/24/19 06:32 10/24/19 06:32 Active Medications Aspirin (Ecotrin -) 81 mg PO DAILY [facility] Last Admin: 10/24/19 10:14 Dose: 81 mg Ceftriaxone Sodium 1 gm/ (Dextrose) 50 mls @ 100 mls/hr IVPB DAILY [facility]; Protocol Last Admin: 10/24/19 10:14 Dose: 100 mls/hr Azithromycin 250 mg/ Dextrose 250 mls @ 250 mls/hr IVPB DAILY [facility] Stop: 10/25/19 10:59 Last Admin: 10/24/19 11:00 Dose: 250 mls/hr Levetiracetam (Keppra -) 500 mg PO BID [facility] Last Admin: 10/24/19 10:14 Dose: 500 mg Metformin HCl (Glucophage -) 1,000 mg PO BID@0700,1630 [facility] Last Admin: 10/24/19 06:19 Dose: 1,000 mg Metoprolol Succinate (Toprol Xl -) 25 mg PO DAILY [facility] Last Admin: 10/24/19 10:14 Dose: 25 mg Sitagliptin Phosphate (Januvia -) 25 mg PO DAILY@0700 [facility] Last Admin: 10/24/19 06:19 Dose: 25 mg A/P Seizure Seizure Disorder Pneumonia HTN Dm Hypothyroidism h/o VTE h/o CVA - complete antibiotics - O2 to keep Spo2>90% - antiepileptics - aspiration precautions - DVT prophylaxis
[2019-10-24 18:24] VITALS: BP 128/71; PULSE 68; TEMP 97.6
== END 2019-10-24 19:40 | DRG 100 ==
LOC: JER 18:28 → JERBED 22:56 → OBSVTOIN 10-21 00:57 → MERGE 10-21 00:57 → J4S 10-21 15:16
PROVIDERS: ADMIT Family Medicine; ATTEND Family Medicine
DX: G40.909 Epilepsy, unspecified, not intractable, without status epilepticus (principal); J18.9 Pneumonia, unspecified organism; I69.322 Dysarthria following cerebral infarction; G30.9 Alzheimer's disease, unspecified; I10 Essential (primary) hypertension; E03.9 Hypothyroidism, unspecified; E11.9 Type 2 diabetes mellitus without complications; Z79.84 Long term (current) use of oral hypoglycemic drugs
CPT/HCPCS: 36415; 70450-TC; 71045-TC-FY; 80048; 80053; 81003; 82550; 82553; 82962; 83605; 84443; 84484; 85025; 85610; 85730; 87177; 87209; 87324; 87449; 87899; 93005; 93010; 93970-TC; 97116-GP; 97161-GP; 99285-25; G0378

== ENCOUNTER 2020-12-28 16:04 | Emergency (ER) | payer OTHER, BC ==
[2020-12-28 16:30] VITALS: BP 149/88; PULSE 85; TEMP 98; BMI 28.1
[2020-12-28 18:34] LABS: BASO % 0.5 % (0-2.0); EOS % 1.2 % (0-4.5); HEMATOCRIT 40.5 % (32.4-45.2); HEMOGLOBIN 13.5 GM/dL (10.7-15.3); LYMPH % 12.5 % (8-40); MCH 32.5 pg (25.7-33.7); MCHC 33.3 g/dl (32.0-36.0); MEAN CELL VOLUME 97.4 fl (80-96); MEAN PLT VOLUME 9.2 fl (7.5-11.1); MONO % 4.8 % (3.8-10.2); PLATELET COUNT 216 K/MM3 (134-434); RBC 4.16 M/mm3 (3.60-5.2); RDW 13.8 % (11.6-15.6); WHITE BLOOD COUNT 8.1 K/mm3 (4.0-10.0)
[2020-12-28 18:57] LABS: CALCIUM 9.5 mg/dL (8.5-10.1)
[2020-12-28 18:59] LABS: ALBUMIN 3.8 g/dl (3.4-5.0); BLOOD UREA NITROGEN 21.4 mg/dL (7-18)
[2020-12-28 19:01] LABS: CREATININE 0.9 mg/dL (0.55-1.3)
[2020-12-28 19:02] LABS: BILIRUBIN,TOTAL 0.8 mg/dL (0.2-1); TOT PROT 8.4 g/dl (6.4-8.2)
[2020-12-28 20:22] LABS: EPI CELLS 2 /uL (0-25.1); HYALINE CASTS 6 /uL (0-3.1); PH,URINE 5.5 (5.0-8.0); URINE APPEARANCE CLOUDY; URINE BACTERIA >9,000 /uL (0-1359); URINE BILIRUBIN NEGATIVE (NEGATIVE); URINE COLOR YELLOW; URINE GLUCOSE (UA) NEGATIVE (NEGATIVE); URINE KETONE NEGATIVE (NEGATIVE); URINE LEUK ESTERASE 2+ (NEGATIVE); URINE NITRITE NEGATIVE (NEGATIVE); URINE PROTEIN NEGATIVE (NEGATIVE); URINE RBC 11 /uL (0-23.9); URINE WBC 285 /uL (0-25.8)
== END 2020-12-28 20:43 | disposition home or self-care (01) ==
LOC: JER 16:04
DX: R41.82 Altered mental status, unspecified (principal)
CPT/HCPCS: 36415; 70450-TC; 71045-TC-FY; 80053; 81003; 85025; 87086; 87186; 99285-25

== ENCOUNTER 2023-09-20 01:51 | Inpatient (IN) | payer BC, OTHER ==
[2023-09-20] MEDS ORDERED: levETIRAcetam 500 MG/5 ML INJECTION VIAL IVPB ONE ×2 (03:17→03:28)
[2023-09-20 03:38] LABS: BASO % 0.8 % (0-2.0); EOS % 1.6 % (0-4.5); HEMATOCRIT 41.2 % (32.4-45.2); HEMOGLOBIN 13.6 GM/dL (10.7-15.3); LYMPH % 15.9 % (8-40); MCH 31.1 pg (25.7-33.7); MEAN CELL VOLUME 94.5 fl (80-96); MEAN PLT VOLUME 9.1 fl (7.5-11.1); MONO % 6.9 % (3.8-10.2); NEUT % 74.8 % (42.8-82.8); PLATELET COUNT 210 10^3/uL (134-434); RBC 4.36 M/mm3 (3.60-5.2); RDW 13.4 % (11.6-15.6); WHITE BLOOD COUNT 7.8 K/mm3 (4.0-10.0)
[2023-09-20 03:46] LABS: INR 1.13 (0.83-1.09); PROTHROMBIN TIME (PATIENT) 13.1 SEC (9.7-13.0)
[2023-09-20 03:48] LABS: ACTIVATED PTT 25.5 SECONDS (25.2-36.5)
[2023-09-20 03:59] LABS: POTASSIUM 3.8 mmol/L (3.5-5.1)
[2023-09-20 04:02] LABS: ALBUMIN 3.3 g/dl (3.4-5.0); MAGNESIUM 1.4 mg/dL (1.8-2.4)
[2023-09-20 04:05] LABS: CREATININE 0.8 mg/dL (0.55-1.3)
[2023-09-20 04:06] LABS: BILIRUBIN,TOTAL 0.8 mg/dL (0.2-1)
[2023-09-20 04:24] LABS: EPI CELLS 1 /uL (0-25.1); HYALINE CASTS 0 /uL (0-3.1); PH,URINE 6.5 (5.0-8.0); URINE APPEARANCE CLEAR; URINE BACTERIA >9,000 /uL (0-1359); URINE BILIRUBIN NEGATIVE (NEGATIVE); URINE COLOR YELLOW; URINE GLUCOSE (UA) TRACE (NEGATIVE); URINE KETONE NEGATIVE (NEGATIVE); URINE LEUK ESTERASE 1+ (NEGATIVE); URINE NITRITE NEGATIVE (NEGATIVE); URINE PROTEIN NEGATIVE (NEGATIVE); URINE RBC 15 /uL (0-23.9); URINE UROBILINOGEN 0.2 mg/dL (0.2-1.0); URINE WBC 212 /uL (0-25.8)
[2023-09-20] MEDS ORDERED: CEFTRIAXONE 1 GM/50 ML BAG ONE (05:04)
[2023-09-20] MEDS ORDERED: MAGNESIUM 1GM/D5W - 1 GM/100 ML IVPB IVPB ONE (06:19)
[2023-09-20] MEDS ORDERED: CEFTRIAXONE 1 GM in DEXTROSE 5%-WATER - 50 ML IVPB SCH (10:00)
[2023-09-20] MEDS ORDERED: VALSARTAN 80 MG TABLET ONE (11:18)
[2023-09-20] MEDS: VALSARTAN 40 MG TABLET PO SCH (11:21)
[2023-09-20] MEDS: INSULIN (NOVOLOG) ASPART 100 UNITS/ML 10ML VIAL SQ SCH ×3 (12:49→21:42)
[2023-09-20] MEDS: RIVAROXABAN 20 MG TABLET PO SCH (18:29)
[2023-09-20] MEDS: levETIRAcetam 500 MG TABLET (FP) PO SCH (21:41)
[2023-09-21 00:22] VITALS: BMI 28.1
[2023-09-21] MEDS: INSULIN (NOVOLOG) ASPART 100 UNITS/ML 10ML VIAL SQ SCH ×4 (06:15→21:46)
[2023-09-21] MEDS: LEVOTHYROXINE NA 25 MCG TABLET (FP) PO SCH (06:15)
[2023-09-21 07:09] LABS: HEMATOCRIT 40.8 % (32.4-45.2); HEMOGLOBIN 13.5 GM/dL (10.7-15.3); MCH 31.2 pg (25.7-33.7); MEAN CELL VOLUME 94.5 fl (80-96); PLATELET COUNT 195 10^3/uL (134-434); RBC 4.32 M/mm3 (3.60-5.2); RDW 13.5 % (11.6-15.6)
[2023-09-21 07:18] LABS: POTASSIUM 3.6 mmol/L (3.5-5.1)
[2023-09-21 07:23] LABS: ALBUMIN 3.1 g/dl (3.4-5.0); CALCIUM 9.6 mg/dL (8.5-10.1)
[2023-09-21 07:26] LABS: CREATININE 0.9 mg/dL (0.55-1.3)
[2023-09-21 07:27] LABS: BILIRUBIN,TOTAL 0.7 mg/dL (0.2-1); TOT PROT 7.3 g/dl (6.4-8.2)
[2023-09-21] MEDS: VALSARTAN 40 MG TABLET PO SCH (10:00)
[2023-09-21] MEDS: CEFTRIAXONE 1 GM in DEXTROSE 5%-WATER - 50 ML IVPB SCH (10:01)
[2023-09-21] MEDS: levETIRAcetam 500 MG TABLET (FP) PO SCH ×2 (10:01→21:30)
[2023-09-21] MEDS: RIVAROXABAN 20 MG TABLET PO SCH (17:46)
[2023-09-22] MEDS: LEVOTHYROXINE NA 25 MCG TABLET (FP) PO SCH (06:12)
[2023-09-22] MEDS: INSULIN (NOVOLOG) ASPART 100 UNITS/ML 10ML VIAL SQ SCH ×4 (06:12→21:58)
[2023-09-22] MEDS: VALSARTAN 40 MG TABLET PO SCH (09:47)
[2023-09-22] MEDS: levETIRAcetam 500 MG TABLET (FP) PO SCH ×2 (09:48→21:58)
[2023-09-22] MEDS: CEFTRIAXONE 1 GM in DEXTROSE 5%-WATER - 50 ML IVPB SCH (09:48)
[2023-09-22] MEDS: EMPAGLIFLOZIN (JARDIANCE) 25 MG TABLET PO SCH (12:21)
[2023-09-22] MEDS: RIVAROXABAN 20 MG TABLET PO SCH (17:50)
[2023-09-23] MEDS: LEVOTHYROXINE NA 25 MCG TABLET (FP) PO SCH (06:01)
[2023-09-23] MEDS: INSULIN (NOVOLOG) ASPART 100 UNITS/ML 10ML VIAL SQ SCH ×5 (06:02→21:33)
[2023-09-23] MEDS: EMPAGLIFLOZIN (JARDIANCE) 25 MG TABLET PO SCH (10:06)
[2023-09-23] MEDS: VALSARTAN 40 MG TABLET PO SCH (10:06)
[2023-09-23] MEDS: CEPHALEXIN MONOHYDRATE 500 MG CAPSULE (UD) PO SCH ×3 (10:07→21:33)
[2023-09-23] MEDS: levETIRAcetam 500 MG TABLET (FP) PO SCH ×3 (10:07→21:33)
[2023-09-23] MEDS: RIVAROXABAN 20 MG TABLET PO SCH (17:31)
[2023-09-24] MEDS: INSULIN (NOVOLOG) ASPART 100 UNITS/ML 10ML VIAL SQ SCH ×3 (06:09→17:51)
[2023-09-24] MEDS: LEVOTHYROXINE NA 25 MCG TABLET (FP) PO SCH (06:09)
[2023-09-24] MEDS: CEPHALEXIN MONOHYDRATE 500 MG CAPSULE (UD) PO SCH (09:34)
[2023-09-24] MEDS: levETIRAcetam 500 MG TABLET (FP) PO SCH (09:34)
[2023-09-24] MEDS: EMPAGLIFLOZIN (JARDIANCE) 25 MG TABLET PO SCH (09:35)
[2023-09-24] MEDS: VALSARTAN 40 MG TABLET PO SCH (09:35)
[2023-09-24] MEDS: RIVAROXABAN 20 MG TABLET PO SCH (17:51)
[2023-09-24 19:17] VITALS: BP 132/51; PULSE 75; RESP 16; TEMP 99
== END 2023-09-24 22:07 | DRG 100 ==
LOC: JER 01:51 → JERBED 05:52 → J4W 21:32 → OBSVTOIN 09-21 15:12
PROVIDERS: ADMIT Internal Medicine; ATTEND Student in an Organized Health Care Education/Training Program
DX: G40.909 Epilepsy, unspecified, not intractable, without status epilepticus (principal); G93.41 Metabolic encephalopathy; N39.0 Urinary tract infection, site not specified; I69.322 Dysarthria following cerebral infarction; I10 Essential (primary) hypertension; E11.9 Type 2 diabetes mellitus without complications; M17.0 Bilateral primary osteoarthritis of knee; F03.90 Unspecified dementia, unspecified severity, without behavioral disturbance, psychotic disturbance, mood disturbance, and anxiety
CPT/HCPCS: 0241U-QW; 36415; 70450-TC; 71045-TC-FY; 72125-TC; 74177-TC; 80053; 80177; 81003; 82550; 82553; 82607; 82746; 82962; 83605; 83690; 83735; 84146; 84443; 84484; 85025; 85027; 85610; 85730; 87086; 87186; 93005; 93010; 95816; 97116-GP; 97162-GP; 99285-25; G0378; Q9967

== ENCOUNTER 2024-06-07 17:26 | Inpatient (IN) | payer OTHER ==
[2024-06-07 18:01] VITALS: BMI 25.0
[2024-06-07 18:48] LABS: VENOUS BASE EXCESS 1.6 mmol/L (-2-2); VENOUS O2 SATURATION 49.2 % (70-80); VENOUS PCO2 51.1 mmHg (38-52); VENOUS PH 7.357 (7.310-7.410)
[2024-06-07 18:49] LABS: BASO % 0.6 % (0-2.0); EOS % 1.9 % (0-4.5); HEMATOCRIT 39.7 % (32.4-45.2); HEMOGLOBIN 13.2 GM/dL (10.7-15.3); LYMPH % 16.5 % (8-40); MCH 31.8 pg (25.7-33.7); MCHC 33.3 g/dl (32.0-36.0); MEAN CELL VOLUME 95.5 fl (80-96); MEAN PLT VOLUME 9.4 fl (7.5-11.1); MONO % 6.9 % (3.8-10.2); NEUT % 74.1 % (42.8-82.8); PLATELET COUNT 187 10^3/uL (134-434); RBC 4.16 M/mm3 (3.60-5.2); RDW 13.5 % (11.6-15.6); WHITE BLOOD COUNT 7.4 K/mm3 (4.0-10.0)
[2024-06-07 19:21] LABS: POTASSIUM 3.2 mmol/L (3.5-5.1)
[2024-06-07 19:24] LABS: ALBUMIN 3.6 g/dl (3.4-5.0); CALCIUM 9.2 mg/dL (8.5-10.1)
[2024-06-07 19:25] LABS: MAGNESIUM 1.4 mg/dL (1.8-2.4)
[2024-06-07 19:28] LABS: BLOOD UREA NITROGEN 14.4 mg/dL (7-18); CREATININE 1.2 mg/dL (0.55-1.3)
[2024-06-07 19:29] LABS: BILIRUBIN,TOTAL 0.8 mg/dL (0.2-1); TOT PROT 7.9 g/dl (6.4-8.2)
[2024-06-07] MEDS ORDERED: POTASSIUM CHLORIDE ORAL LIQUID 20 MEQ/15 ML ONE (23:24)
[2024-06-07] MEDS: POTASSIUM CHLORIDE ORAL LIQUID 20 MEQ/15 ML PO ONE (23:33)
[2024-06-07] MEDS: SODIUM CHLORIDE 0.9% 500 ML INFUS.BAG IV ONE (23:33)
[2024-06-08] MEDS: MAGNESIUM SULFATE IN WATER 2 GM/50 ML IVPB IVPB ONE (00:10)
[2024-06-08 01:56] LABS: EPI CELLS 2 /uL (0-25.1); HYALINE CASTS 0 /uL (0-3.1); URINE APPEARANCE CLOUDY; URINE BACTERIA >9,000 /uL (0-1359); URINE BILIRUBIN NEGATIVE (NEGATIVE); URINE COLOR YELLOW; URINE GLUCOSE (UA) 3+ (NEGATIVE); URINE KETONE NEGATIVE (NEGATIVE); URINE LEUK ESTERASE 1+ (NEGATIVE); URINE NITRITE NEGATIVE (NEGATIVE); URINE PROTEIN TRACE (NEGATIVE); URINE RBC 88 /uL (0-23.9); URINE WBC 135 /uL (0-25.8)
[2024-06-08] MEDS ORDERED: levETIRAcetam 500 MG TABLET (FP) PO SCH ×3 (02:03→10:00)
[2024-06-08] MEDS: VALSARTAN 40 MG TABLET PO ONE ×2 (03:38→20:30)
[2024-06-08] MEDS: levETIRAcetam 500 MG TABLET (FP) PO SCH (03:38)
[2024-06-08] MEDS: VALSARTAN 40 MG TABLET PO SCH ×2 (03:38→08:56)
[2024-06-08] MEDS: INSULIN (NOVOLOG) ASPART 100 UNITS/ML 10ML VIAL SQ ONE (04:04)
[2024-06-08] MEDS: INSULIN ASPART SLIDING SCALE (NOVOLOG) 1 VIAL SQ SCH (06:26)
[2024-06-08] MEDS: LEVOTHYROXINE NA 25 MCG TABLET (FP) PO SCH (06:26)
[2024-06-08] MEDS: amLODIPine BESYLATE 5 MG TABLET (FP) PO SCH (09:03)
[2024-06-08 13:07] LABS: HEMATOCRIT 38.3 % (32.4-45.2); HEMOGLOBIN 12.7 GM/dL (10.7-15.3); MCH 31.5 pg (25.7-33.7); MCHC 33.2 g/dl (32.0-36.0); MEAN CELL VOLUME 94.9 fl (80-96); MEAN PLT VOLUME 8.5 fl (7.5-11.1); PLATELET COUNT 189 10^3/uL (134-434); RBC 4.04 M/mm3 (3.60-5.2); RDW 13.1 % (11.6-15.6)
[2024-06-08 13:44] LABS: POTASSIUM 3.1 mmol/L (3.5-5.1)
[2024-06-08 13:47] LABS: ALBUMIN 3.2 g/dl (3.4-5.0); BLOOD UREA NITROGEN 10.4 mg/dL (7-18)
[2024-06-08 13:48] LABS: MAGNESIUM 1.7 mg/dL (1.8-2.4)
[2024-06-08 13:50] LABS: CREATININE 0.7 mg/dL (0.55-1.3)
[2024-06-08 13:51] LABS: PHOSPHOROUS 2.2 mg/dL (2.5-4.9)
[2024-06-08 13:52] LABS: BILIRUBIN,TOTAL 0.8 mg/dL (0.2-1); TOT PROT 7.4 g/dl (6.4-8.2)
[2024-06-08 13:54] LABS: N-TERMINAL BNP 307.7 pg/ml (5-450)
[2024-06-08] MEDS: MAGNESIUM SULF 50% (8.12 MEQ/2 ML-1 GM VIAL) IVPB ONE (17:41)
[2024-06-08] MEDS: NAPH,MB-DB/K PH,MBDB POWDER PACKET PO ONE (17:41)
[2024-06-08] MEDS: RIVAROXABAN 20 MG TABLET PO SCH (17:41)
[2024-06-08] MEDS ORDERED: VALSARTAN 40 MG TABLET PO SCH (19:35)
[2024-06-08] MEDS ORDERED: VALSARTAN 160 MG TABLET PO SCH (19:36)
[2024-06-08] MEDS: MAGNESIUM OXIDE 400 MG TABLET (FP) PO ONE (20:30)
[2024-06-09 07:21] LABS: BASO % 0.6 % (0-2.0); EOS % 4.1 % (0-4.5); HEMATOCRIT 38.8 % (32.4-45.2); HEMOGLOBIN 12.7 GM/dL (10.7-15.3); LYMPH % 24.2 % (8-40); MCH 31.6 pg (25.7-33.7); MCHC 32.7 g/dl (32.0-36.0); MEAN CELL VOLUME 96.6 fl (80-96); MEAN PLT VOLUME 9.4 fl (7.5-11.1); MONO % 8.6 % (3.8-10.2); NEUT % 62.5 % (42.8-82.8); PLATELET COUNT 177 10^3/uL (134-434); RBC 4.02 M/mm3 (3.60-5.2); RDW 12.8 % (11.6-15.6); WHITE BLOOD COUNT 6.8 K/mm3 (4.0-10.0)
[2024-06-09 07:39] LABS: POTASSIUM 3.3 mmol/L (3.5-5.1)
[2024-06-09 07:46] LABS: ALBUMIN 3.1 g/dl (3.4-5.0); BLOOD UREA NITROGEN 12.9 mg/dL (7-18); CALCIUM 9.3 mg/dL (8.5-10.1); MAGNESIUM 1.6 mg/dL (1.8-2.4)
[2024-06-09 07:50] LABS: CREATININE 0.8 mg/dL (0.55-1.3); PHOSPHOROUS 2.2 mg/dL (2.5-4.9)
[2024-06-09] MEDS: VALSARTAN 160 MG TABLET PO SCH (09:30)
[2024-06-09] MEDS: MAGNESIUM 2GM/50ML STERILE WATER IVPB IVPB ONE (10:19)
[2024-06-09] MEDS: POTASSIUM PHOSPHATE 15 MM in SODIUM CHLORIDE 250 ML IVPB ONE (11:47)
[2024-06-09 15:50] VITALS: RESP 18
[2024-06-09] MEDS: VALSARTAN 160 MG TABLET PO ONE (21:36)
[2024-06-10 07:50] LABS: HEMATOCRIT 39.3 % (32.4-45.2); MCH 31.6 pg (25.7-33.7); MEAN CELL VOLUME 95.9 fl (80-96); MEAN PLT VOLUME 9.4 fl (7.5-11.1); PLATELET COUNT 179 10^3/uL (134-434); RBC 4.09 M/mm3 (3.60-5.2); RDW 13.3 % (11.6-15.6); WHITE BLOOD COUNT 6.7 K/mm3 (4.0-10.0)
[2024-06-10 07:59] LABS: POTASSIUM 3.9 mmol/L (3.5-5.1)
[2024-06-10 08:04] LABS: ALBUMIN 3.1 g/dl (3.4-5.0); CALCIUM 8.7 mg/dL (8.5-10.1)
[2024-06-10 08:05] LABS: BLOOD UREA NITROGEN 11.3 mg/dL (7-18); MAGNESIUM 1.7 mg/dL (1.8-2.4)
[2024-06-10 08:07] LABS: CREATININE 0.8 mg/dL (0.55-1.3)
[2024-06-10 08:08] LABS: PHOSPHOROUS 2.6 mg/dL (2.5-4.9)
[2024-06-10 08:09] LABS: TOT PROT 7.3 g/dl (6.4-8.2)
[2024-06-10] MEDS: VALSARTAN 160 MG TABLET PO SCH (10:07)
[2024-06-10 15:11] VITALS: BP 154/75; PULSE 72; TEMP 97.9
== END 2024-06-10 16:15 | disposition home or self-care (01) | DRG 101 ==
LOC: JER 17:26 → JERBED 21:22 → J4W 06-08 01:47
PROVIDERS: ADMIT Student in an Organized Health Care Education/Training Program; ATTEND Internal Medicine
DX: G40.909 Epilepsy, unspecified, not intractable, without status epilepticus (principal); N39.0 Urinary tract infection, site not specified; E46 Unspecified protein-calorie malnutrition; I13.0 Hypertensive heart and chronic kidney disease with heart failure and stage 1 through stage 4 chronic kidney disease, or unspecified chronic kidney disease; I24.89 Other forms of acute ischemic heart disease; N18.30 Chronic kidney disease, stage 3 unspecified; E03.9 Hypothyroidism, unspecified; F03.90 Unspecified dementia, unspecified severity, without behavioral disturbance, psychotic disturbance, mood disturbance, and anxiety; E11.22 Type 2 diabetes mellitus with diabetic chronic kidney disease; E11.65 Type 2 diabetes mellitus with hyperglycemia; E83.42 Hypomagnesemia; I12.9 Hypertensive chronic kidney disease with stage 1 through stage 4 chronic kidney disease, or unspecified chronic kidney disease; B96.20 Unspecified Escherichia coli [E. coli] as the cause of diseases classified elsewhere
CPT/HCPCS: 36415; 70450-TC; 71045-TC-FY; 73630-TC-RT-FY; 80053; 80177; 81003; 82803; 82962; 83036; 83605; 83735; 83880; 84100; 84439; 84443; 84484; 85025; 85027; 87086; 87186; 93005; 93010; 93306-TC; 93970-TC; 97116-GP; 97161-GP; 99285-25